=== PATIENT | female | born 1995 | race Caucasian/White ===

== ENCOUNTER → 2020-11-11 | Outpatient (CLI) | payer BC ==
--- NOTE | 2020-11-11 08:46 | US ---
EXAMINATION TYPE: US abdomen limited DATE OF EXAM: 11/11/2020 COMPARISON: NONE CLINICAL HISTORY: R10.13 Epigastric pain. Epigastric pain after meals x years; takes Metformin for CP OS EXAM MEASUREMENTS: Liver Length: 13.7 cm Gallbladder Wall: 0.2 cm CBD: 0.3 cm Right Kidney: 9.2 x 5.3 x 3.8 cm Pancreas: Hyperechoic parenchyma Liver: Diffuse fatty infiltration of liver. Hypoechoic oval structure in the right lobe of the liver measuring 1.3 x 0.9 x 0.8cm and seen on multiple images. Further evaluation with CT or MRI using siria er protocol with IV contrast is recommended. Underlying neoplasm is not excluded. Gallbladder: multiple shadowing stones nearly filling gallbladder lumen Evidence for sonographic Swain's sign: no CBD: wnl Right Kidney: No hydronephrosis or masses seen IMPRESSION: 1. Cholelithiasis. 2. Diffuse fatty infiltration of the liver. 3. 1.3 cm structure in the right lobe of the liver is indeterminate on this study. Further evaluation with CT or MRI using liver protocol is recommended. Underlying neoplasm is not excluded.
== END | disposition home or self-care (01) ==
LOC: RADUSWWP 07:09
PROVIDERS: ATTEND Family Medicine
DX: K80.20 Calculus of gallbladder without cholecystitis without obstruction (principal); K76.0 Fatty (change of) liver, not elsewhere classified
CPT/HCPCS: 76705

== ENCOUNTER → 2020-12-29 | Outpatient (CLI) | payer BC | END | disposition home or self-care (01) | LOC: RADMRIMAIN 12:19 | PROVIDERS: ATTEND Nurse Practitioner Family | DX: Z53.9 Procedure and treatment not carried out, unspecified reason (principal) ==